=== PATIENT | female | born 1970 | race African-American/Black ===

== ENCOUNTER 2019-04-14 04:11 | Inpatient (IN) | payer MEDICAID ==
[2019-04-14] VITALS (60 sets, daily range): BP systolic 115–213; BP diastolic 49–143
[~2019-04-14] VITALS: Ht 167.6 cm; Wt 156.5 kg
[~2019-04-14 04:11] MED LIST: AMLO10TA4 NG; AMLO10TA80 PO; ASPI-1158 PO; Aspirin PO; FURO-152 PO; GLYB2.5T4 PO; HYDR-4134 PO; ISOS20TA8 GT; Isosorb Dinit/Hydralazine Hcl PO; LOSA50TA3 PO; Metoprolol Tartrate PO; Nitroglycerin TD; POTA-79 PO; POTA20TA82 PO
[2019-04-14] MEDS ORDERED: SUCCINYLCHOLINE CHLORIDE 200MG/10ML IV ONE ×2 (04:16→04:30)
[2019-04-14] MEDS ORDERED: ETOMIDATE 2MG/ML 10ML VIAL IV ONE ×2 (04:16→04:30)
[2019-04-14] MEDS ORDERED: ONDANSETRON HCL 4MG/2ML INJ IV STA (04:26)
[2019-04-14] MEDS ORDERED: NITROGLYCERIN 50MG PREMIX 250 ML IV ONE (04:26)
[2019-04-14] MEDS ORDERED: MORPHINE SULFATE 4 MG/ML CPJ (NOT FOR IM USE) IV STA (04:26)
[2019-04-14] MEDS ORDERED: PROPOFOL 10MG/ML 100ML 100 ML IV ONE ×2 (04:27→04:30)
[2019-04-14] MEDS ORDERED: FUROSEMIDE 40MG/4ML VIAL IV ONE (04:30)
[2019-04-14 04:55] LABS: BG BASE EXCESS -8.2 mmol/L (-2.0-2.0); BG CARBOXYHEMOGLOBIN 0.5 % (0.5-1.5); BG DEOXYHEMOGLOBIN 24.4 % (0.0-5.0); BG FRACTION INSPIRED OXYGEN 100; BG HCO3 ACT 23.6 mmol/L (22.0-26.0); BG METHEMOGLOBIN 0.3 % (0.0-1.5); BG OXYGEN SATURATION 75.4 % (92.0-98.5); BG OXYHEMOGLOBIN 74.8 % (94.0-97.0); BG PH 7.082 (7.350-7.450); BG PO2 55.7 mmHg (75.0-100.0); BG SAMPLE SITE RIGHT BRACHIAL; BG TIDAL VOLUME(mL) 500 mL; BG TOTAL HEMOGLOBIN 14.6 g/dL (12.0-18.0); BG VENT MODE VENT - A/C; BG VENT RATE 16 set
[2019-04-14] MEDS ORDERED: FENTANYL CITRATE/PF 500 MCG in SODIUM CHLORIDE 0.9% 40 ML IV PRN ×3 (05:15→09:00)
[2019-04-14] MEDS ORDERED: MIDAZOLAM HCL 50 MG in DEXTROSE 5% WATER 40 ML IV ONE (05:15)
[2019-04-14 05:19] LABS: CHLORIDE 107 mEq/L (98-107)
[2019-04-14] MEDS ORDERED: MIDAZOLAM HCL 50 MG in DEXTROSE 5% WATER 40 ML IV SCH (05:30)
[2019-04-14 05:33] LABS: BASOPHILS % 0.6 % (0.0-2.0); EOSINOPHILS % 1.4 % (0.0-5.0); HEMOGLOBIN. 12.9 g/dL (12.0-16.0); LYMPHOCYTES % 19.5 % (20.0-50.0); MEAN CORPUSCULAR HEMOGLOBIN 28.3 pg (28.0-32.0); MEAN CORPUSCULAR VOLUME 87.7 fL (81.0-99.0); MONOCYTES % 6.4 % (2.0-8.0); NEUTROPHILS % 72.1 % (40.0-76.0); PLATELET 244 x1000/uL (130-400); RED BLOOD CELL COUNT 4.56 mill/uL (4.2-5.4); RED CELL DISTRIBUTION WIDTH 16.2 % (11.6-14.6)
[2019-04-14 05:58] LABS: PROTHROMBIN TIME 10.3 sec (9.6-11.0)
[2019-04-14 07:23] LABS: CLARITY URINE CLOUDY (CLEAR); COLOR URINE YELLOW (YELLOW); KETONES URINE NEGATIVE (NEGATIVE); LEUKOCYTE ESTERASE URINE NEGATIVE (NEGATIVE); NITRITE URINE NEGATIVE (NEGATIVE); OCCULT BLOOD URINE 2+ (NEGATIVE); PROTEIN URINE 3+ (NEGATIVE); SPECIFIC GRAVITY URINE 1.016 (1.005-1.030); UROBILINOGEN URINE 0.2 E.U./dL (0.2-1.0)
[2019-04-14] MEDS ORDERED: SODIUM CHLORIDE 0.9% 1,000 ML IV SCH (07:25)
[2019-04-14] MEDS ORDERED: GUAIFENESIN 200MG/10ML SUGAR FREE UDC PO PRN (07:30)
[2019-04-14] MEDS ORDERED: MAGNESIUM/ALUMINUM HYDROXIDE/SIMETHICONE 30ML UDC PO PRN (07:30)
[2019-04-14] MEDS ORDERED: DOCUSATE SODIUM 100MG CAPSULE PO PRN (07:30)
[2019-04-14] MEDS ORDERED: CLONIDINE 0.1MG TABLET PO PRN (07:30)
[2019-04-14] MEDS ORDERED: IPRATROPIUM/ALBUTEROL 0.5-3(2.5)MG/3ML NEB INH PRN (07:30)
[2019-04-14] MEDS ORDERED: ACETAMINOPHEN 325MG TABLET PO PRN (07:30)
[2019-04-14] MEDS ORDERED: DIPHENHYDRAMINE 50MG/ML VIAL IV PRN (07:30)
[2019-04-14 07:47] LABS: PHOSPHORUS 5.9 mg/dL (2.5-4.9)
[2019-04-14 08:09] LABS: BG BASE EXCESS 0.9 mmol/L (-2.0-2.0); BG CARBOXYHEMOGLOBIN 0.4 % (0.5-1.5); BG DEOXYHEMOGLOBIN 1.6 % (0.0-5.0); BG FRACTION INSPIRED OXYGEN 100; BG HCO3 ACT 27.2 mmol/L (22.0-26.0); BG METHEMOGLOBIN 0.4 % (0.0-1.5); BG OXYGEN SATURATION 98.4 % (92.0-98.5); BG OXYHEMOGLOBIN 97.6 % (94.0-97.0); BG PCO2 50.1 mmHg (35.0-45.0); BG PH 7.352 (7.350-7.450); BG PO2 130.9 mmHg (75.0-100.0); BG SAMPLE SITE LEFT RADIAL; BG TIDAL VOLUME(mL) 500 mL; BG TOTAL HEMOGLOBIN 13.7 g/dL (12.0-18.0); BG VENT MODE VENT - A/C; BG VENT RATE 20 set
[2019-04-14] MEDS: PROPOFOL 10MG/ML 100ML 100 ML IV PRN ×6 (09:06→23:06)
[2019-04-14] MEDS ORDERED: OMEPRAZOLE 20MG CAPSULE EXTENDED RELEASE PO SCH (09:30)
[2019-04-14] MEDS: FUROSEMIDE 40MG/4ML VIAL IVP SCH ×2 (09:44→17:48)
[2019-04-14] MEDS: ENOXAPARIN 40MG/0.4ML SYR SUBCUT SCH ×2 (09:44→21:22)
[2019-04-14] MEDS: CEFTRIAXONE 1 G PREMIX 50 ML IV SCH (09:48)
[2019-04-14] MEDS: BLOOD SUGAR DIAGNOSTIC STRIP TEST SCH ×3 (12:00→23:29)
[2019-04-14] MEDS ORDERED: DEXTROSE 50% WATER 50ML SYRINGE IV PRN (12:45)
[2019-04-14] MEDS ORDERED: MEDICATION NOT ON FORMULARY EA (Valsartan 1 TAB) MT SCH (13:00)
[2019-04-14] MEDS ORDERED: RANI150T7 MT (13:03)
[2019-04-14] MEDS ORDERED: VALS80TA30 MT (13:03)
[2019-04-14] MEDS ORDERED: HYDR25TA MT (13:03)
[2019-04-14] MEDS ORDERED: METF-815 MT (13:03)
[2019-04-14] MEDS ORDERED: SIMV10TA6 MT (13:03)
[2019-04-14 13:07] LABS: *AMPHETAMINES SCREEN URINE NEGATIVE (NEGATIVE); *BARBITURATES SCREEN URINE NEGATIVE (NEGATIVE); *BENZODIAZEPINES SCREEN URINE PRESUMTIVE POSITIVE (NEGATIVE); *COCAINE SCREEN URINE NEGATIVE (NEGATIVE); METHADONE URINE SCREEN NEGATIVE (NEGATIVE)
[2019-04-14 13:08] LABS: CANNABINOID URINE SCREEN NEGATIVE (NEGATIVE); OPIATES URINE SCREEN NEGATIVE (NEGATIVE); PHENCYCLIDINE URINE SCREEN NEGATIVE (NEGATIVE)
[2019-04-14] MEDS: LANSOPRAZOLE 30MG DR CAPSULE GT SCH (13:19)
[2019-04-14] MEDS: NITROGLYCERIN OINT 1GM/INCH UDPKT TD SCH ×2 (13:19→21:23)
[2019-04-14] MEDS: INSULIN LISPRO 100 UNITS/ML SUBCUT SCH ×3 (13:24→23:29)
[2019-04-14] MEDS ORDERED: LOSARTAN POTASSIUM 50 MG TABLET PO SCH (13:30)
[2019-04-14 15:37] LABS: T4 FREE 0.97 ng/dL (0.76-1.46)
[2019-04-14] MEDS ORDERED: FUROSEMIDE 40MG/4ML VIAL IVP SCH (16:00)
[2019-04-14] MEDS: FENTANYL CITRATE/PF 500 MCG in SODIUM CHLORIDE 0.9% 40 ML IV PRN (18:49)
[2019-04-14 23:30] LABS: CREATINE KINASE MB FRACTION 1.3 ng/mL (0.5-3.6)
[2019-04-15] VITALS (59 sets, daily range): BP systolic 106–186; BP diastolic 63–112
[2019-04-15] MEDS: PROPOFOL 10MG/ML 100ML 100 ML IV PRN ×7 (03:03→22:06)
[2019-04-15 05:42] LABS: HEMATOCRIT. 38.7 % (36.0-48.0); HEMOGLOBIN. 12.5 g/dL (12.0-16.0); MEAN CORPUSCULAR VOLUME 86.5 fL (81.0-99.0); MEAN PLATELET VOLUME 10.2 fl (7.4-10.4); PLATELET 196 x1000/uL (130-400); RED BLOOD CELL COUNT 4.48 mill/uL (4.2-5.4)
[2019-04-15 05:59] LABS: CHLORIDE 106 mEq/L (98-107)
[2019-04-15] MEDS: INSULIN LISPRO 100 UNITS/ML SUBCUT SCH ×3 (06:00→17:49)
[2019-04-15] MEDS: BLOOD SUGAR DIAGNOSTIC STRIP TEST SCH ×3 (06:02→17:49)
[2019-04-15] MEDS: NITROGLYCERIN OINT 1GM/INCH UDPKT TD SCH (06:06)
[2019-04-15] MEDS: LANSOPRAZOLE 30MG DR CAPSULE GT SCH (06:06)
[2019-04-15] MEDS: FENTANYL CITRATE/PF 500 MCG in SODIUM CHLORIDE 0.9% 40 ML IV PRN ×2 (06:15→16:17)
[2019-04-15] MEDS: FUROSEMIDE 40MG/4ML VIAL IVP SCH ×2 (06:15→16:17)
[2019-04-15 07:37] LABS: BG BASE EXCESS 3.5 mmol/L (-2.0-2.0); BG DEOXYHEMOGLOBIN 0.5 % (0.0-5.0); BG FRACTION INSPIRED OXYGEN 80; BG HCO3 ACT 27.7 mmol/L (22.0-26.0); BG METHEMOGLOBIN 0.1 % (0.0-1.5); BG OXYGEN SATURATION 99.5 % (92.0-98.5); BG OXYHEMOGLOBIN 99.4 % (94.0-97.0); BG PCO2 40.4 mmHg (35.0-45.0); BG PH 7.454 (7.350-7.450); BG PO2 283.7 mmHg (75.0-100.0); BG SAMPLE SITE RIGHT RADIAL; BG TIDAL VOLUME(mL) 500 mL; BG TOTAL HEMOGLOBIN 13.5 g/dL (12.0-18.0); BG VENT MODE VENT - A/C; BG VENT RATE 20 set
[2019-04-15] MEDS ORDERED: POTASSIUM CHLORIDE 20MEQ TABLET SR PO NR (08:00)
[2019-04-15] MEDS: FAMOTIDINE 20MG/2ML VIAL IV SCH (08:31)
[2019-04-15] MEDS: ENOXAPARIN 40MG/0.4ML SYR SUBCUT SCH ×2 (08:31→20:22)
[2019-04-15] MEDS: LOSARTAN POTASSIUM 50 MG TABLET PO SCH ×2 (08:32→20:21)
[2019-04-15] MEDS: CEFTRIAXONE 1 G PREMIX 50 ML IV SCH (09:36)
[2019-04-15 11:25] LABS: HEPATITIS B SURFACE ANTIGEN NEGATIVE
[2019-04-15 11:54] LABS: HEPATITIS A AB IGM NEGATIVE (NEGATIVE)
[2019-04-15 13:00] LABS: PLATELET ESTIMATE NORMAL
[2019-04-15] MEDS: HYDRALAZINE HCL 10MG TABLET PO SCH ×2 (13:11→22:02)
[2019-04-15] MEDS ORDERED: HYDROCODONE/ACETAMINOPHEN 5/325MG TABLET PO PRN (17:30)
[2019-04-15] MEDS ORDERED: THROAT LOZENGES-BENZOCAINE/MENTH/CETYLPYRD CL LOZENGES MM PRN (17:30)
[2019-04-15] MEDS: CARVEDILOL 3.125 MG TABLET PO SCH (20:21)
[2019-04-16] VITALS (68 sets, daily range): BP systolic 96–211; BP diastolic 47–129
[2019-04-16] MEDS: BLOOD SUGAR DIAGNOSTIC STRIP TEST SCH ×5 (00:21→23:17)
[2019-04-16] MEDS: FENTANYL CITRATE/PF 500 MCG in SODIUM CHLORIDE 0.9% 40 ML IV PRN (01:23)
[2019-04-16] MEDS: PROPOFOL 10MG/ML 100ML 100 ML IV PRN ×3 (01:30→08:02)
[2019-04-16] MEDS: HYDRALAZINE HCL 10MG TABLET PO SCH ×2 (06:00→13:33)
[2019-04-16] MEDS: INSULIN LISPRO 100 UNITS/ML SUBCUT SCH ×5 (06:00→23:18)
[2019-04-16 06:11] LABS: BASOPHILS % 0.5 % (0.0-2.0); EOSINOPHILS % 2.6 % (0.0-5.0); HEMATOCRIT. 36.9 % (36.0-48.0); HEMOGLOBIN. 12.1 g/dL (12.0-16.0); MEAN CORPUSCULAR VOLUME 85.2 fL (81.0-99.0); NEUTROPHILS % 54.9 % (40.0-76.0); PLATELET 197 x1000/uL (130-400); RED BLOOD CELL COUNT 4.33 mill/uL (4.2-5.4); RED CELL DISTRIBUTION WIDTH 15.9 % (11.6-14.6)
[2019-04-16] MEDS: FUROSEMIDE 40MG/4ML VIAL IVP SCH ×2 (06:11→16:38)
[2019-04-16 06:24] LABS: CHLORIDE 106 mEq/L (98-107)
[2019-04-16 06:30] LABS: PHOSPHORUS 4.4 mg/dL (2.5-4.9)
[2019-04-16 07:36] LABS: BG BASE EXCESS 4.5 mmol/L (-2.0-2.0); BG CARBOXYHEMOGLOBIN 0.3 % (0.5-1.5); BG DEOXYHEMOGLOBIN 1.4 % (0.0-5.0); BG FRACTION INSPIRED OXYGEN 55; BG METHEMOGLOBIN 0.3 % (0.0-1.5); BG OXYGEN SATURATION 98.6 % (92.0-98.5); BG PCO2 48.2 mmHg (35.0-45.0); BG PH 7.412 (7.350-7.450); BG PO2 127.3 mmHg (75.0-100.0); BG SAMPLE SITE RIGHT RADIAL; BG TIDAL VOLUME(mL) 500 mL; BG TOTAL HEMOGLOBIN 13.8 g/dL (12.0-18.0); BG VENT MODE VENT - A/C; BG VENT RATE 16 set
[2019-04-16] MEDS: LOSARTAN POTASSIUM 50 MG TABLET PO SCH ×2 (08:07→20:09)
[2019-04-16] MEDS: FAMOTIDINE 20MG/2ML VIAL IV SCH (08:07)
[2019-04-16] MEDS: CARVEDILOL 3.125 MG TABLET PO SCH (08:07)
[2019-04-16] MEDS: ENOXAPARIN 40MG/0.4ML SYR SUBCUT SCH ×2 (08:07→20:09)
[2019-04-16] MEDS ORDERED: POTASSIUM CHLORIDE 20MEQ/PACKET PO NR (09:45)
[2019-04-16] MEDS: LORAZEPAM 2MG/ML CPJ IV PRN ×2 (09:51→10:44)
[2019-04-16] MEDS ORDERED: LORAZEPAM 2MG/ML CPJ IV NR (10:30)
[2019-04-16] MEDS: DOCUSATE SODIUM SUGAR FREE 100MG/10ML UDC PO SCH ×2 (11:00→20:10)
[2019-04-16] MEDS ORDERED: BISACODYL 10MG SUPP PR PRN (11:00)
[2019-04-16] MEDS: ONDANSETRON HCL 4MG/2ML INJ IV PRN (11:20)
[2019-04-16] MEDS: CEFTRIAXONE 1 G PREMIX 50 ML IV SCH (11:30)
[2019-04-16] MEDS: IPRATROPIUM/ALBUTEROL 0.5-3(2.5)MG/3ML NEB HHN SCH ×2 (12:35→20:05)
[2019-04-16 14:08] LABS: BG BASE EXCESS 2.9 mmol/L (-2.0-2.0); BG CARBOXYHEMOGLOBIN 0.8 % (0.5-1.5); BG DEOXYHEMOGLOBIN 2.8 % (0.0-5.0); BG FRACTION INSPIRED OXYGEN 40; BG HCO3 ACT 28.8 mmol/L (22.0-26.0); BG METHEMOGLOBIN 0.2 % (0.0-1.5); BG OXYGEN SATURATION 97.2 % (92.0-98.5); BG OXYHEMOGLOBIN 96.2 % (94.0-97.0); BG PCO2 49.2 mmHg (35.0-45.0); BG PH 7.385 (7.350-7.450); BG PO2 99.5 mmHg (75.0-100.0); BG PRESSURE SUPPORT 8; BG SAMPLE SITE RIGHT BRACHIAL; BG TOTAL HEMOGLOBIN 14.1 g/dL (12.0-18.0); BG VENT MODE VENT - CPAP
[2019-04-16] MEDS ORDERED: RACEPINEPHRINE 2.25% 0.5ML NEB VIAL HHN PRN (14:30)
[2019-04-16] MEDS: CLONIDINE 0.1MG TABLET PO SCH ×2 (15:10→23:17)
[2019-04-16] MEDS: AMLODIPINE 5MG TABLET PO SCH ×2 (15:11→20:09)
[2019-04-16] MEDS: HYDRALAZINE HCL 50MG TABLET PO SCH ×2 (16:52→23:17)
[2019-04-16] MEDS: CARVEDILOL 6.25 MG TABLET PO SCH (20:09)
[2019-04-17] VITALS (25 sets, daily range): BP systolic 112–176; BP diastolic 53–96
[2019-04-17] MEDS: IPRATROPIUM/ALBUTEROL 0.5-3(2.5)MG/3ML NEB HHN SCH ×4 (02:11→22:20)
[2019-04-17] MEDS: INSULIN LISPRO 100 UNITS/ML SUBCUT SCH ×5 (05:33→21:00)
[2019-04-17] MEDS: BLOOD SUGAR DIAGNOSTIC STRIP TEST SCH ×5 (05:33→21:02)
[2019-04-17 05:36] LABS: BASOPHILS % 0.3 % (0.0-2.0); EOSINOPHILS % 1.5 % (0.0-5.0); HEMOGLOBIN. 13.1 g/dL (12.0-16.0); LYMPHOCYTES % 18.3 % (20.0-50.0); MEAN CORPUSCULAR HEMOGLOBIN 28.2 pg (28.0-32.0); MEAN CORPUSCULAR VOLUME 86.5 fL (81.0-99.0); MONOCYTES % 11.7 % (2.0-8.0); NEUTROPHILS % 68.2 % (40.0-76.0); PLATELET 239 x1000/uL (130-400); RED BLOOD CELL COUNT 4.63 mill/uL (4.2-5.4); RED CELL DISTRIBUTION WIDTH 15.9 % (11.6-14.6)
[2019-04-17 05:47] LABS: PHOSPHORUS 3.9 mg/dL (2.5-4.9)
[2019-04-17] MEDS: CLONIDINE 0.1MG TABLET PO SCH ×3 (07:00→23:16)
[2019-04-17] MEDS: FUROSEMIDE 40MG/4ML VIAL IVP SCH ×3 (07:58→09:17)
[2019-04-17] MEDS: FAMOTIDINE 20MG/2ML VIAL IV SCH (08:03)
[2019-04-17] MEDS: AMLODIPINE 5MG TABLET PO SCH ×2 (08:03→20:53)
[2019-04-17] MEDS: LOSARTAN POTASSIUM 50 MG TABLET PO SCH ×2 (08:03→20:52)
[2019-04-17] MEDS: CARVEDILOL 6.25 MG TABLET PO SCH ×2 (08:03→20:53)
[2019-04-17] MEDS: HYDRALAZINE HCL 50MG TABLET PO SCH ×2 (08:04→18:21)
[2019-04-17] MEDS: DOCUSATE SODIUM SUGAR FREE 100MG/10ML UDC PO SCH ×2 (08:22→21:02)
[2019-04-17] MEDS: ENOXAPARIN 40MG/0.4ML SYR SUBCUT SCH ×2 (08:22→20:56)
[2019-04-17] MEDS ORDERED: FUROSEMIDE 40MG/4ML VIAL IVP NR (09:00)
[2019-04-17] MEDS ORDERED: POTASSIUM CHLORIDE 20MEQ TABLET SR PO NR (09:45)
[2019-04-17 10:24] LABS: BG BASE EXCESS 6.3 mmol/L (-2.0-2.0); BG CARBOXYHEMOGLOBIN 0.9 % (0.5-1.5); BG DEOXYHEMOGLOBIN 8.5 % (0.0-5.0); BG FRACTION INSPIRED OXYGEN 24; BG HCO3 ACT 31.7 mmol/L (22.0-26.0); BG METHEMOGLOBIN 0.3 % (0.0-1.5); BG OXYGEN SATURATION 91.4 % (92.0-98.5); BG OXYHEMOGLOBIN 90.3 % (94.0-97.0); BG PCO2 48.5 mmHg (35.0-45.0); BG PH 7.433 (7.350-7.450); BG PO2 61.1 mmHg (75.0-100.0); BG SAMPLE SITE RIGHT RADIAL; BG TOTAL HEMOGLOBIN 13.5 g/dL (12.0-18.0); BG VENT MODE NASAL CANNULA
[2019-04-17] MEDS: CEFTRIAXONE 1 G PREMIX 50 ML IV SCH (10:37)
[2019-04-17] MEDS: ONDANSETRON HCL 4MG/2ML INJ IV PRN (12:33)
[2019-04-18] MEDS: HYDRALAZINE HCL 50MG TABLET PO SCH ×2 (00:16→08:34)
[2019-04-18] MEDS: IPRATROPIUM/ALBUTEROL 0.5-3(2.5)MG/3ML NEB HHN SCH ×2 (02:27→09:50)
[2019-04-18 03:57] LABS: BASOPHILS % 0.8 % (0.0-2.0); EOSINOPHILS % 1.8 % (0.0-5.0); HEMATOCRIT. 39.7 % (36.0-48.0); HEMOGLOBIN. 12.9 g/dL (12.0-16.0); LYMPHOCYTES % 22.7 % (20.0-50.0); MEAN CORPUSCULAR HEMOGLOBIN 28.1 pg (28.0-32.0); MEAN CORPUSCULAR VOLUME 86.5 fL (81.0-99.0); MEAN PLATELET VOLUME 9.9 fl (7.4-10.4); MONOCYTES % 11.7 % (2.0-8.0); PLATELET 235 x1000/uL (130-400); RED BLOOD CELL COUNT 4.58 mill/uL (4.2-5.4); RED CELL DISTRIBUTION WIDTH 15.4 % (11.6-14.6)
[2019-04-18 04:00] VITALS: BP 138/89
[2019-04-18 04:18] LABS: PHOSPHORUS 2.9 mg/dL (2.5-4.9)
[2019-04-18] MEDS: FUROSEMIDE 40MG/4ML VIAL IVP SCH (05:59)
[2019-04-18] MEDS: CLONIDINE 0.1MG TABLET PO SCH ×2 (05:59→14:44)
[2019-04-18] MEDS: ONDANSETRON HCL 4MG/2ML INJ IV PRN (06:18)
[2019-04-18] MEDS: BLOOD SUGAR DIAGNOSTIC STRIP TEST SCH ×2 (06:30→11:43)
[2019-04-18] MEDS: INSULIN LISPRO 100 UNITS/ML SUBCUT SCH ×2 (06:30→11:58)
[2019-04-18 08:00] VITALS: BP 139/93
[2019-04-18] MEDS: CARVEDILOL 6.25 MG TABLET PO SCH (08:34)
[2019-04-18] MEDS: LOSARTAN POTASSIUM 50 MG TABLET PO SCH (08:34)
[2019-04-18] MEDS: FAMOTIDINE 20MG/2ML VIAL IV SCH (08:35)
[2019-04-18] MEDS: AMLODIPINE 5MG TABLET PO SCH (08:35)
[2019-04-18] MEDS: DOCUSATE SODIUM SUGAR FREE 100MG/10ML UDC PO SCH (08:36)
[2019-04-18] MEDS: ENOXAPARIN 40MG/0.4ML SYR SUBCUT SCH (08:37)
[2019-04-18 12:00] VITALS: BP 143/75
[2019-04-18] MEDS ORDERED: AMLO5TAB88 PO (12:41)
[2019-04-18] MEDS ORDERED: CLON0.1T14 PO (12:41)
[2019-04-18] MEDS ORDERED: HYDR-4135 PO (12:41)
[2019-04-18] MEDS ORDERED: FURO40TA5 MT (12:41)
[2019-04-18] MEDS ORDERED: COR6 PO (12:41)
[2019-04-18] MEDS: CEFTRIAXONE 1 G PREMIX 50 ML IV SCH (13:52)
[2019-04-18 14:01] VITALS: BP 143/75
== END 2019-04-18 16:10 | disposition home or self-care (01) | DRG 133 ==
LOC: ER 04:11 → MICUSO 05:14 → EDBEDREQTM 05:20 → EDBEDREQSVC 05:20 → EDBEDREQ 05:20 → ENRESERV 06:43 → 8WST 04-17 16:51
PROVIDERS: ADMIT Internal Medicine; ATTEND Internal Medicine
PROC: 5A1945Z Respiratory Ventilation, 24-96 Consecutive Hours (ICD-10-PCS; principal; 2019-04-14)
PROC: 0BH17EZ Insertion of Endotracheal Airway into Trachea, Via Natural or Artificial Opening (ICD-10-PCS; 2019-04-14)
DX: J96.01 Acute respiratory failure with hypoxia (principal); I50.43 Acute on chronic combined systolic (congestive) and diastolic (congestive) heart failure; N17.9 Acute kidney failure, unspecified; E11.22 Type 2 diabetes mellitus with diabetic chronic kidney disease; N18.3 Chronic kidney disease, stage 3 (moderate); E87.2 Acidosis; E11.65 Type 2 diabetes mellitus with hyperglycemia; I42.9 Cardiomyopathy, unspecified; E44.1 Mild protein-calorie malnutrition; E66.2 Morbid (severe) obesity with alveolar hypoventilation; E87.6 Hypokalemia; I13.0 Hypertensive heart and chronic kidney disease with heart failure and stage 1 through stage 4 chronic kidney disease, or unspecified chronic kidney disease; F41.9 Anxiety disorder, unspecified; F17.210 Nicotine dependence, cigarettes, uncomplicated; J96.02 Acute respiratory failure with hypercapnia; Z78.1 Physical restraint status; Z82.49 Family history of ischemic heart disease and other diseases of the circulatory system; Z83.3 Family history of diabetes mellitus; Z86.74 Personal history of sudden cardiac arrest; Z68.43 Body mass index [BMI] 50.0-59.9, adult; Z79.84 Long term (current) use of oral hypoglycemic drugs; Z79.82 Long term (current) use of aspirin; Z79.899 Other long term (current) drug therapy; Z71.3 Dietary counseling and surveillance
CPT/HCPCS: 36415; 36600; 71045; 76700; 80048; 80061; 80305; 82375; 82550; 82553; 82570; 82805; 82962; 83036; 83735; 83880; 84100; 84156; 84439; 84443; 84478; 84481; 84484; 86705; 86709; 86803; 87340; 93005; 93306; 93970; 94002; 94003; 94640; 96365; 96375; 97162; 99291; J0330; J0696; J1650; J1815; J1940; J2060; J2250; J2270; J2405; J2704; J3010; J3490; J7050; J7060; J7620; A4315

== ENCOUNTER 2019-04-29 10:57 | Inpatient (IN) | payer MEDICAID ==
[~2019-04-29] VITALS: Ht 180.3 cm; Wt 144.8 kg
[~2019-04-29 10:57] MED LIST changes: -AMLO10TA4 NG; -AMLO10TA80 PO; +AMLO5TAB88 PO; -ASPI-1158 PO; -Aspirin PO; +CLON0.1T14 PO; +COR6 PO; -FURO-152 PO; +FURO40TA5 MT; -HYDR-4134 PO; +HYDR-4135 PO; -ISOS20TA8 GT; -Isosorb Dinit/Hydralazine Hcl PO; +METF-815 MT; -Metoprolol Tartrate PO; -Nitroglycerin TD; -POTA20TA82 PO; +RANI150T7 MT; +SIMV10TA6 MT
[2019-04-29 14:37] LABS: BASOPHILS % 0.8 % (0.0-2.0); EOSINOPHILS % 2.7 % (0.0-5.0); HEMATOCRIT. 41.2 % (36.0-48.0); HEMOGLOBIN. 13.3 g/dL (12.0-16.0); LYMPHOCYTES % 28.5 % (20.0-50.0); MEAN CORPUSCULAR HEMOGLOBIN 28.1 pg (28.0-32.0); MEAN CORPUSCULAR VOLUME 86.8 fL (81.0-99.0); MEAN PLATELET VOLUME 9.8 fl (7.4-10.4); MONOCYTES % 9.7 % (2.0-8.0); NEUTROPHILS % 58.3 % (40.0-76.0); PLATELET 346 x1000/uL (130-400); RED BLOOD CELL COUNT 4.74 mill/uL (4.2-5.4); RED CELL DISTRIBUTION WIDTH 15.7 % (11.6-14.6)
[2019-04-29 14:41] LABS: CHLORIDE 107 mEq/L (98-107)
[2019-04-29 14:44] LABS: D-DIMER 0.78 mg/L FEU (<0.50); PARTIAL THROMBOPLASTIN TIME 29.9 sec (23.4-31.0); PROTHROMBIN TIME 10.4 sec (9.6-11.0)
[2019-04-29] MEDS: CLONIDINE 0.1MG TABLET PO SCH ×2 (15:18→22:43)
[2019-04-29] MEDS ORDERED: ENOXAPARIN 150MG/ML SYR SUBCUT ONE (15:30)
[2019-04-29] MEDS ORDERED: ONDANSETRON HCL 4MG/2ML INJ IV PRN (16:30)
[2019-04-29] MEDS ORDERED: ACETAMINOPHEN 325MG TABLET PO PRN (16:30)
[2019-04-29] MEDS: AMLODIPINE 5MG TABLET PO SCH (17:48)
[2019-04-29] MEDS: ASPIRIN 81MG EC TABLET PO SCH (17:48)
[2019-04-29 17:50] LABS: CLARITY URINE CLEAR (CLEAR); COLOR URINE YELLOW (YELLOW); KETONES URINE NEGATIVE (NEGATIVE); LEUKOCYTE ESTERASE URINE TRACE (NEGATIVE); NITRITE URINE NEGATIVE (NEGATIVE); OCCULT BLOOD URINE NEGATIVE (NEGATIVE); PROTEIN URINE NEGATIVE (NEGATIVE); SPECIFIC GRAVITY URINE 1.011 (1.005-1.030); UROBILINOGEN URINE 0.2 E.U./dL (0.2-1.0)
[2019-04-29 20:00] VITALS: BP 176/91
[2019-04-29] MEDS ORDERED: CARVEDILOL 6.25 MG TABLET PO NR (20:00)
[2019-04-29] MEDS ORDERED: LOSARTAN POTASSIUM 100 MG TABLET PO NR (20:00)
[2019-04-29 21:10] VITALS: BP 176/91
[2019-04-29 22:00] VITALS: BP 176/91
[2019-04-30] VITALS: BP 139/78
[2019-04-30] MEDS: AMLODIPINE 5MG TABLET PO SCH (02:16)
[2019-04-30 04:00] VITALS: BP 150/80
[2019-04-30] MEDS: CLONIDINE 0.1MG TABLET PO SCH (05:57)
[2019-04-30] MEDS ORDERED: ENOXAPARIN 150MG/ML SYR SUBCUT SCH (06:00)
[2019-04-30 06:07] LABS: BASOPHILS % 0.7 % (0.0-2.0); EOSINOPHILS % 2.3 % (0.0-5.0); HEMATOCRIT. 38.2 % (36.0-48.0); HEMOGLOBIN. 12.3 g/dL (12.0-16.0); LYMPHOCYTES % 38.9 % (20.0-50.0); MEAN CORPUSCULAR VOLUME 86.7 fL (81.0-99.0); MEAN PLATELET VOLUME 9.5 fl (7.4-10.4); NEUTROPHILS % 47.1 % (40.0-76.0); PLATELET 304 x1000/uL (130-400); RED BLOOD CELL COUNT 4.41 mill/uL (4.2-5.4); RED CELL DISTRIBUTION WIDTH 15.4 % (11.6-14.6)
[2019-04-30 06:23] LABS: CHLORIDE 109 mEq/L (98-107)
[2019-04-30] MEDS ORDERED: METFORMIN HCL 500MG TABLET PO SCH (07:40)
[2019-04-30 08:00] VITALS: BP 168/103
[2019-04-30] MEDS ORDERED: LOSARTAN POTASSIUM 100 MG TABLET PO SCH (09:00)
[2019-04-30] MEDS ORDERED: CARVEDILOL 6.25 MG TABLET PO SCH (09:00)
[2019-04-30] MEDS: ASPIRIN 81MG EC TABLET PO SCH (09:06)
[2019-04-30] MEDS ORDERED: POTASSIUM CHLORIDE 20MEQ TABLET SR PO NR (09:45)
[2019-04-30 11:46] VITALS: BP 131/68
[2019-04-30 14:25] VITALS: BP 131/68
== END 2019-04-30 16:25 | disposition home or self-care (01) | DRG 194 ==
LOC: ER 10:57 → 8WST 16:07 → EDBEDREQ 16:13 → ENRESERV 20:24
PROVIDERS: ADMIT Internal Medicine; ATTEND Internal Medicine
DX: I13.0 Hypertensive heart and chronic kidney disease with heart failure and stage 1 through stage 4 chronic kidney disease, or unspecified chronic kidney disease (principal); E11.22 Type 2 diabetes mellitus with diabetic chronic kidney disease; I42.9 Cardiomyopathy, unspecified; E11.65 Type 2 diabetes mellitus with hyperglycemia; I50.43 Acute on chronic combined systolic (congestive) and diastolic (congestive) heart failure; G47.33 Obstructive sleep apnea (adult) (pediatric); I82.612 Acute embolism and thrombosis of superficial veins of left upper extremity; E87.6 Hypokalemia; E78.5 Hyperlipidemia, unspecified; N18.9 Chronic kidney disease, unspecified; F41.9 Anxiety disorder, unspecified; E66.01 Morbid (severe) obesity due to excess calories; J44.9 Chronic obstructive pulmonary disease, unspecified; Z86.74 Personal history of sudden cardiac arrest; Z68.42 Body mass index [BMI] 45.0-49.9, adult; Z68.41 Body mass index [BMI] 40.0-44.9, adult
CPT/HCPCS: 36415; 71045; 78582; 80048; 82962; 83735; 83880; 84484; 85379; 86850; 86900; 93005; 93971; 96372; 99291; A9558; J1650; J2405